=== PATIENT | male | born 1940 | race Two or more races ===

== ENCOUNTER 2017-07-12 10:37 | Outpatient (CLI) | payer OTHER ==
[~2017-07-12 10:37] MED LIST: AFRIN SPRAY15 ML NS; ATACAND4 MG; AYR SALINE NA14.1 GM NASAL; COUMADIN5 MG; LIPITOR20 MG; LOSARTAN POTAS100 MG
== END 2017-07-12 10:50 | disposition home or self-care (01) ==
LOC: TOM 10:37
DX: G93.89 Other specified disorders of brain (principal)

== ENCOUNTER 2018-02-07 10:44 | Inpatient (IN) | payer OTHER ==
[~2018-02-07] VITALS: Ht 162.6 cm; Wt 168.7 kg
[2018-02-09] MEDS ORDERED: LOSARTAN POTASS50 MG PO (13:37)
[2018-02-09] MEDS ORDERED: COUMADIN1 MG PO (13:39)
== END 2018-02-09 14:19 | disposition home or self-care (01) | DRG 813 ==
LOC: ER 10:44 → SEC-K 12:56 → MEDI 12:56
DX: D68.32 Hemorrhagic disorder due to extrinsic circulating anticoagulants (principal); I48.3 Typical atrial flutter; Q60.0 Renal agenesis, unilateral; D68.69 Other thrombophilia; T45.515A Adverse effect of anticoagulants, initial encounter; F03.90 Unspecified dementia, unspecified severity, without behavioral disturbance, psychotic disturbance, mood disturbance, and anxiety; K57.30 Diverticulosis of large intestine without perforation or abscess without bleeding; E11.9 Type 2 diabetes mellitus without complications; I48.2 Chronic atrial fibrillation; I11.9 Hypertensive heart disease without heart failure; Z79.01 Long term (current) use of anticoagulants; Z95.4 Presence of other heart-valve replacement; Y92.098 Other place in other non-institutional residence as the place of occurrence of the external cause

== ENCOUNTER 2018-05-23 08:12 | Outpatient (CLI) | payer OTHER ==
[~2018-05-23 08:12] MED LIST changes: +COUMADIN1 MG PO; +LOSARTAN POTASS50 MG PO
== END 2018-05-23 18:02 | disposition home or self-care (01) ==
LOC: LAB 08:12
DX: I48.0 Paroxysmal atrial fibrillation (principal)

== ENCOUNTER 2018-11-06 11:07 | Emergency (ER) | payer OTHER ==
[~2018-11-06] VITALS: Ht 165.1 cm; Wt 76.2 kg
[2018-11-06] MEDS ORDERED: SERTRALINE HCL25 MG PO (15:56)
== END 2018-11-06 16:17 ==
LOC: ER 11:07
DX: B34.9 Viral infection, unspecified (principal); R06.02 Shortness of breath

== ENCOUNTER 2018-12-11 12:10 | Outpatient (CLI) | payer OTHER ==
[~2018-12-11 12:10] MED LIST changes: +SERTRALINE HCL25 MG PO
== END 2018-12-11 16:19 | disposition home or self-care (01) ==
LOC: RAD 12:10
DX: J45.998 Other asthma (principal)

== ENCOUNTER 2020-05-07 10:19 | Emergency (ER) | payer OTHER ==
[~2020-05-07] VITALS: Ht 160 cm; Wt 75.7 kg
[2020-05-07] MEDS ORDERED: SKELAXIN800 MG PO (13:44)
[2020-05-08] MEDS ORDERED: DONEPEZIL HCL5 MG (10:27)
[2020-05-08] MEDS ORDERED: MEDROLPACK PO (12:52)
[2020-05-08] MEDS ORDERED: ULTRAM50 MG PO (13:03)
== END 2020-05-07 13:53 | disposition home or self-care (01) ==
LOC: ER 10:19
DX: S43.491A Other sprain of right shoulder joint, initial encounter (principal); S00.33XA Contusion of nose, initial encounter; M12.511 Traumatic arthropathy, right shoulder; W18.09XA Striking against other object with subsequent fall, initial encounter; Y93.89 Activity, other specified; Y92.89 Other specified places as the place of occurrence of the external cause; Y99.8 Other external cause status; G30.8 Other Alzheimer's disease; F02.80 Dementia in other diseases classified elsewhere, unspecified severity, without behavioral disturbance, psychotic disturbance, mood disturbance, and anxiety

== ENCOUNTER 2020-05-08 10:10 | Emergency (ER) | payer OTHER ==
[~2020-05-08] VITALS: Ht 167.6 cm; Wt 76.7 kg
[~2020-05-08 10:10] MED LIST changes: +SKELAXIN800 MG PO
[2020-05-08] MEDS ORDERED: DONEPEZIL HCL5 MG (10:27)
[2020-05-08] MEDS ORDERED: MEDROLPACK PO (12:52)
[2020-05-08] MEDS ORDERED: ULTRAM50 MG PO (13:03)
== END 2020-05-08 13:16 | disposition home or self-care (01) ==
LOC: ER 10:10
DX: M25.511 Pain in right shoulder (principal)

== ENCOUNTER 2021-03-11 09:00 | Outpatient (CLI) | payer OTHER ==
[~2021-03-11 09:00] MED LIST changes: +DONEPEZIL HCL5 MG; +MEDROLPACK PO; +ULTRAM50 MG PO
== END 2021-03-11 09:30 | disposition home or self-care (01) ==
LOC: PPH VACUNA 09:00
PROVIDERS: ATTEND Emergency Medicine Pediatric Emergency Medicine
DX: Z23 Encounter for immunization (principal)

== ENCOUNTER 2021-05-25 12:54 | Outpatient (CLI) | payer OTHER | END 2021-05-25 12:56 | disposition home or self-care (01) | LOC: RAD 12:54 | PROVIDERS: ATTEND Specialist | DX: J45.998 Other asthma (principal) ==

== ENCOUNTER → 2023-06-24 | Emergency (ER) | payer OTHER ==
[~2023-06-24] VITALS: Ht 165.1 cm; Wt 59.0 kg
[~2023-06-24] MED LIST changes: +0.9 % SODIUM CHLORIDE 1,000 ML IV STA; +AMLODIPINE-OLM1 EAC2; +CARBIDOPA-LEVO1 EA12; +COZAAR25 MG; +LOSARTAN POTASS50 MG; +SERTRALINE20 MG/1 ML
[2023-06-24 17:22] LABS: HEMOGLOBIN 12.1 g/dL (13-16.00); MEAN CELL VOLUME 97.9 fL (80.0-100.00); MEAN CORPUSCULAR HEMOGLOBIN 32.8 pg (27.00-32.0); MEAN CORPUSCULAR HGB CONC 33.5 g/dl (32.0-36.0); PLATELET COUNT 239 K/uL (150-450); RED BLOOD COUNT 3.68 M/uL (4.00-6.00); RED CELL DISTRIBUTION WIDTH 14.3 % (11.5-14.5)
[2023-06-24 17:37] LABS: CALCIUM 9.7 mg/dL (8.5-10.1); CREATININE SERUM 1.23 mg/dL (0.70-1.30); GFR 56.06; POTASSIUM 4.59 mEq/L (3.5-5.1)
[2023-06-24 18:07] LABS: PARTIAL THROMBOPLASTIN TIME 46.4 SECONDS (22.0-34.0)
[2023-06-24 18:08] LABS: INR 3.59
[2023-06-24 18:09] LABS: PROTHROMBIN TIME 34.3 SECONDS (9.0-11.5)
== END | disposition designated cancer center or children's hospital (05) ==
LOC: ER 11:49
PROVIDERS: General Practice
DX: S06.5XAA Traumatic subdural hemorrhage with loss of consciousness status unknown, initial encounter (principal); W07.XXXA Fall from chair, initial encounter; Y93.89 Activity, other specified; Y92.018 Other place in single-family (private) house as the place of occurrence of the external cause; Z88.6 Allergy status to analgesic agent; G30.8 Other Alzheimer's disease; F02.80 Dementia in other diseases classified elsewhere, unspecified severity, without behavioral disturbance, psychotic disturbance, mood disturbance, and anxiety; Z20.822 Contact with and (suspected) exposure to COVID-19
CPT/HCPCS: 36415; 70450; 72125; 96365; 96366; 99285; J7030

== ENCOUNTER 2023-07-11 11:12 | Outpatient (CLI) | payer OTHER ==
[~2023-07-11 11:12] MED LIST changes: -0.9 % SODIUM CHLORIDE 1,000 ML IV STA
== END 2023-07-11 11:18 | disposition home or self-care (01) ==
LOC: TOM 11:12
DX: S06.5XAA Traumatic subdural hemorrhage with loss of consciousness status unknown, initial encounter (principal); Z98.890 Other specified postprocedural states

== ENCOUNTER 2024-01-24 13:04 | Outpatient (CLI) | payer OTHER | END 2024-01-24 13:13 | disposition home or self-care (01) | LOC: TOM 13:04 | DX: I62.03 Nontraumatic chronic subdural hemorrhage (principal) ==

== ENCOUNTER 2024-06-18 13:32 | Outpatient (CLI) | payer OTHER | END 2024-06-18 13:37 | disposition home or self-care (01) | LOC: RAD 13:32 | DX: R05.9 Cough, unspecified (principal); R50.9 Fever, unspecified ==